=== PATIENT | female | born 1965 | race Caucasian/White ===

== ENCOUNTER 2017-11-12 18:40 | Observation (INO) ==
--- NOTE | 2017-11-12 19:17 | Emergency Department Note ---
Disposition Clinical Impression: Acute appendicitis Qualifiers: Acute appendicitis type: unspecified acute appendicitis type Qualified Code(s) : K35.80 - Unspecified acute appendicitis Disposition: Admitted As Inpatient Referrals: Ally Francois MD [Primary Care Provider] - General Adult HPI - General Chief complaint: ED Abdominal Pain Stated complaint: "meeting surgeon for appendectomy" Time Seen by Provider: 11/12/17 18:42 Source: patient Limitations: no limitations - History of Present Illness Pain Scale: 4 - Related Data Previous Rx's Medication Instructions Recorded Clindamycin [Cleocin] 300 mg PO Q8HR #6 capsule 02/17/15 Hydrocodone/Acetaminophen [[place] 1 - 2 tab PO Q6H PRN #30 tab 02/17/15 5-325 Tablet] Cyclobenzaprine HCl 5 mg PO DAILY 3 Days tablet 09/10/15 Naproxen [Naprosyn] 500 mg PO BID 3 Days tablet 09/10/15 Allergies Allergy/AdvReac Type Severity Reaction Status Date / Time acetaminophen [From Percocet] Allergy Anaphylaxis Verified 11/12/17 18:50 Cephalosporins Allergy Anaphylaxis Verified 11/12/17 18:50 Oxycodone Allergy Anaphylaxis Verified 11/12/17 18:50 chlorhexidine AdvReac Rash Verified 11/12/17 18:50 Past Medical History - Past Medical History Medical history: Reports: GERD Surgical history: Reports: cholecystectomy, hysterectomy Psychiatric history: Reports: anxiety - Social History Smoking Status: Never smoker Smokeless Tobacco Status: No Alcohol use: Reports: unknown Drug use: Reports: none Physical Exam - General Limitations: no limitations General appearance: alert, in no apparent distress Course Vital Signs Temperature 98.9 F 11/12/17 18:43 Pulse Rate 90 11/12/17 18:43 Respiratory Rate 16 11/12/17 18:43 Blood Pressure 151/91 11/12/17 18:43 O2 Sat by Pulse Oximetry 97 11/12/17 18:43 Temperature 98.9 F 11/12/17 18:43 Pulse Rate 90 11/12/17 18:43 Respiratory Rate 16 11/12/17 18:43 Blood Pressure 151/91 11/12/17 18:43 O2 Sat by Pulse Oximetry 97 11/12/17 18:43 Oxygen Delivery Oxygen Delivery Room Air Attestation Statement - Attestation Attestation: I examined this patient and my medical decision-making was reviewed with the Resident Physician. I agree with the documented findings, disposition and treatment plan as described except to the extent set forth below. 52 year old albert stallingsentes to the ED with complaints of an acute uncomplicated appendicitis. Darnell had an outpatient CT which confirms and she is here to see Dr. Hamilton. WE will start pre-op workup and Dr. Hamilton is at bedside for eval. We will admit.
[2017-11-12 19:18] LABS: Basophils # 0.1 K/mcL (0.0-0.2); Basophils % 0.5 %; Eosinophils # 0.1 K/mcL (0.0-0.6); Eosinophils % 0.9 %; Hematocrit 39.6 % (35.3-44.9); Hemoglobin 13.6 g/dL (11.5-15.4); Immature Granulocytes % 0.4 % (0-4); Lymphocytes % 23.2 %; Mean Corpuscular HGB Conc 34.3 g/dL (31.6-35.5); Mean Corpuscular Hemoglobin 32.5 pg (28.0-33.3); Mean Corpuscular Volume 94.7 fL (83.0-100.0); Mean Platelet Volume 10.1 fL (9.4-12.4); Monocytes # 0.9 K/mcL (0.0-1.3); Monocytes % 7.1 %; Neutrophils # 8.7 K/mcL (1.6-8.9); Platelet Count 276 K/mcL (140-400); Red Blood Count 4.18 M/mcL (3.82-4.97); Red Cell Distribution Width 12.5 % (11.5-14.5); Segmented Neutrophils % 67.9 %
[2017-11-12] MEDS ORDERED: Piperacillin/Tazobactam 3.375 GM in 0.9 % Sodium Chloride Mini Bag 100 ML IVPB ONE (19:19)
[2017-11-12 19:26] LABS: INR 1.1; Prothrombin Time 11.5 Seconds (9.4-12.1)
[2017-11-12 19:28] LABS: Activated Partial Thrombo Time 27.5 Seconds (26.0-36.0)
[2017-11-12 19:40] LABS: BUN/Creatinine Ratio 11 (6-26); Blood Urea Nitrogen 9 mg/dL (6-20); Calcium 9.3 mg/dL (8.6-10.3); Carbon Dioxide 28 mEq/L (23-29); Chloride 106 mEq/L (98-107); Glucose 110 mg/dL (70-105); Osmolality,Calculated 287 (280-300); Potassium 3.7 mEq/L (3.5-5.1); Sodium 139 mEq/L (136-145); eGFR For African Americans > 60 (> 60); eGFR For Non-African Americans > 60 (> 60)
[2017-11-12] MEDS ORDERED: Acetaminophen 325 MG TABLET PO PRN (19:41)
[2017-11-12] MEDS ORDERED: Ringers Solution, Lactated 1,000 ML IVC SCH (19:45)
--- NOTE | 2017-11-12 19:47 | Emergency Department Note ---
Disposition Clinical Impression: Acute appendicitis Qualifiers: Acute appendicitis type: unspecified acute appendicitis type Qualified Code(s) : K35.80 - Unspecified acute appendicitis Disposition: Admitted As Inpatient Condition: Good Referrals: Ally Francois MD [Primary Care Provider] - Forms: ED Satisfaction Letter, Work/School Release General Adult HPI - General Chief complaint: ED Abdominal Pain Stated complaint: "meeting surgeon for appendectomy" Time Seen by Provider: 11/12/17 18:42 Source: patient Limitations: no limitations Nursing Notes Reviewed: Yes Vital Signs Reviewed: Yes - History of Present Illness HPI Narrative: 52-year-old female who went to see her primary care physician due to abdominal pain. As an outpatient received a CT scan of the abdomen and pelvis which demonstrated acute appendicitis. Primary care physician called Dr. tamez who met the patient here in the emergency department. She has had nausea and decreased by mouth intake but she was eating approximately one hour prior to arrival when she received the call from her primary care physician. Past surgical history of cholecystectomy and hysterectomy. Onset approximately 24 hours ago Pain Scale: 4 Improves with: nothing Worsens with: nothing Associated symptoms: Reports: denies other symptoms Treatments Prior to Arrival: none - Related Data Allergies Allergy/AdvReac Type Severity Reaction Status Date / Time acetaminophen [From Percocet] Allergy Anaphylaxis Verified 11/12/17 18:50 Cephalosporins Allergy Anaphylaxis Verified 11/12/17 18:50 Oxycodone Allergy Anaphylaxis Verified 11/12/17 18:50 chlorhexidine AdvReac Rash Verified 11/12/17 18:50 All systems ED: reviewed and negative except as stated. Constitutional: Denies: fever ENT ED: Denies: throat pain Cardiovascular: Denies: chest pain Respiratory: Denies: cough Gastrointestinal: Reports: abdominal pain, nausea. Denies: vomiting Integumentary: Denies: rash Neurological: Denies: headache Past Medical History - Past Medical History Medical history: Reports: GERD Surgical history: Reports: cholecystectomy, hysterectomy Psychiatric history: Reports: anxiety - Social History Smoking Status: Never smoker Smokeless Tobacco Status: No Alcohol use: Reports: unknown Drug use: Reports: none Physical Exam - General Limitations: no limitations General appearance: alert, in no apparent distress - Head Head exam: atraumatic - Eye Eye exam: Present: normal appearance - ENT ENT exam: normal exam, normal oropharynx - Neck Neck exam: Present: normal inspection - Chest Chest inspection: Present: normal inspection - Respiratory Respiratory exam: Present: normal lung sounds bilaterally. Absent: respiratory distress - Cardiovascular Cardiovascular exam: Present: regular rate, normal rhythm - Abdominal Exam Abdominal exam: Present: soft, tenderness (Right lower quadrant), tenderness at McBurney's Point. Absent: guarding - Extremities Exam Extremities exam: Present: normal inspection - Neurological Exam Neurological exam: Present: alert, oriented X3 - Skin Skin exam: Present: warm, dry Course Course Narrative: Saw the patient with Dr. tamez in the emergency department. He will accept the patient with Zosyn antibiotic coverage and plan for laparoscopic cholecystectomy. Vital Signs Temperature 98.9 F 11/12/17 18:43 Pulse Rate 90 11/12/17 18:43 Respiratory Rate 16 11/12/17 18:43 Blood Pressure 151/91 11/12/17 18:43 O2 Sat by Pulse Oximetry 97 11/12/17 18:43 Temperature 98.9 F 11/12/17 18:43 Pulse Rate 90 11/12/17 18:43 Respiratory Rate 16 11/12/17 18:43 Blood Pressure 151/91 11/12/17 18:43 O2 Sat by Pulse Oximetry 97 11/12/17 18:43 Oxygen Delivery Oxygen Delivery Room Air Medical Decision Making - Medical Records Medical records reviewed: Yes I reviewed the patient's medical records. - Lab Data Lab results reviewed: Yes I reviewed the patient's lab results. Result diagrams: 11/12/17 19:03 11/12/17 19:03 Lab Results 11/12/17 11/12/17 11/12/17 Range/Units 19:03 19:03 19:03 WBC 12.8 H (4.3-11.1) K/mcL RBC 4.18 (3.82-4.97) M/mcL Hgb 13.6 (11.5-15.4) g/dL Hct 39.6 (35.3-44.9) % MCV 94.7 (83.0-100.0) fL MCH 32.5 (28.0-33.3) pg MCHC 34.3 (31.6-35.5) g/dL RDW 12.5 (11.5-14.5) % Plt Count 276 (140-400) K/mcL MPV 10.1 (9.4-12.4) fL Immature Gran % 0.4 (0-4) % Seg Neutrophils % 67.9 % Lymphocytes % 23.2 % Monocytes % 7.1 % Eosinophils % 0.9 % Basophils % 0.5 % Neutrophils # 8.7 (1.6-8.9) K/mcL Lymphocytes # 3.0 (0.6-4.6) K/mcL Monocytes # 0.9 (0.0-1.3) K/mcL Eosinophils # 0.1 (0.0-0.6) K/mcL Basophils # 0.1 (0.0-0.2) K/mcL PT 11.5 (9.4-12.1) Seconds INR 1.1 APTT 27.5 (26.0-36.0) Seconds Sodium 139 (136-145) mEq/L Potassium 3.7 (3.5-5.1) mEq/L Chloride 106 (98-107) mEq/L Carbon Dioxide 28 (23-29) mEq/L BUN 9 (6-20) mg/dL Creatinine 0.84 (0.60-1.20) mg/dL Est GFR ( Amer) > 60 (> 60) Est GFR (Non-Af Amer) > 60 (> 60) BUN/Creatinine Ratio 11 (6-26) Glucose 110 H (70-105) mg/dL Calculated Osmolality 287 (280-300) Calcium 9.3 (8.6-10.3) mg/dL - Radiology Data Radiology results reviewed: Yes I reviewed the patient's radiology results. - EKG Data EKG #1 EKG attestation: Yes I reviewed and interpreted this EKG. EKG shows normal: sinus rhythm Rate: normal Rhythm: NSR Interpretation: no acute changes
--- NOTE | 2017-11-12 19:57 | General Surg History&Physical ---
Date of Encounter: 11/12/17 Time of Encounter: 19:25 History of Present Illness Chief complaint: lower abdominal pain, acute appendicitis HPI: Ms. Angel is a 52 year old female referred to the ED By Eh Green and Edu Oneill after presenting to their office earlier today with new onset abdominal pain since approximately 1400 hrs. yesterday. The patient describes severe nausea but no vomiting. The pain began in the epigastrium has migrated to the lower abdomen and is radiating through to the back. He CT abdomen and pelvis completed as an outpatient demonstrated a dilated appendicitis approximately 9 mm in diameter with periappendiceal stranding consistent with acute appendicitis. The patient was instructed to present to the emergency department for further evaluation and treatment. Surgical referral was ultimately made. Past medical history: No significant history Surgical history: Tonsillectomy at age 39, hysterectomy, and cholecystectomy Allergies: Cephalosporins, Percocet, oxycodone, chlorhexidine skin prep Patient has taken penicillin/amoxicillin in the past without reaction The patient indicates that she can take hydrocodone/Vicodin for pain Medications: The patient takes no routine home meds Social history: Patient is G1, P1; she does not smoke; she admits to rare alcoholic beverage while on vacation; she does not admit to any illicit drug use Family history: Noncontributory Physical examination: Age-appropriate woman who appears to be in no acute distress, resting comfortably in her ED bed. She is 1.6 m tall, 64.86 kg; BMI 25.3. On presentation to the emergency department she is afebrile, 98.9; pulse 90, respirations 16 and unlabored; blood pressure 151/91. SPO2 on room air 97%. Skin: Warm, no obvious jaundice Lungs: Clear bilaterally; no obvious abdominal pain with deep inspiration Cardiac: Regular rate, no appreciable murmur Abdomen: Soft with tenderness most pronounced in the right lower quadrant. There is minimal tenderness to the right lower quadrant when the left lower quadrant is palpated. No discernible intra-abdominal masses. No obvious rebound. Bowel sounds present. Extremities: No obvious clubbing, cyanosis, or edema. CT abdomen/pelvis was reviewed. Findings include evidence of previous cholecystectomy; diverticulosis without diverticulitis; dilated appendix approximately 9 mm in diameter with periappendiceal stranding. Liver, spleen, pancreas, and adrenal glands appear unremarkable. Laboratories: White count 12.8, hemoglobin 13.6, hematocrit 39.6. Platelet count 276,000; differential within normal limits. Electrolytes, BUN, creatinine within normal limits. PT was 11.5, INR 1.1. Impression: 52-year-old female referred to the emergency department for further evaluation new-onset abdominal pain with nausea. Symptoms began vaguely in the epigastrium approximately 1400 hrs. yesterday and have progressed and migrated to the right lower quadrant radiating through to the back. Clinical findings and CT abdomen/pelvis are consistent with acute appendicitis. Surgery has been recommended. Risks of surgery include hemorrhage, infection, intra-abdominal abscess, injury to adjacent structures such as bowel, ureters, urinary bladder. If a normal appendix is encountered it will be removed to eliminate this diagnosis in the future. The patient is aware that an open appendectomy may become necessary. Alternative to appendectomy is non-operative observation with IV antibiotics and pain control. Risks of this treatment include progressive pain, nausea, vomiting with worsening appendicitis and possible perforation. If she responds to such non-surgical therapy, there is a risk of recurrent acute appendicitis in the future. The patient and her family in attendance have expressed understanding and are willing to proceed with surgery. This will be arranged today pending availability of an operating room/ team. The patient will be transferred to [facility] pending availability of the operating room. Past Med Surg Social Fam HX - Past Medical History Medical history: GERD Psychiatric history: anxiety - Past Surgical History Surgical History: cholecystectomy, hysterectomy - Social History Smoking Status: Never smoker Smokeless Tobacco Status: No Alcohol use: unknown Drug use: none Medications and Allergies 3 Allergy/AdvReac Type Severity Reaction Status Date / Time acetaminophen [From Percocet] Allergy Anaphylaxis Verified 11/12/17 18:50 Cephalosporins Allergy Anaphylaxis Verified 11/12/17 18:50 Oxycodone Allergy Anaphylaxis Verified 11/12/17 18:50 chlorhexidine AdvReac Rash Verified 11/12/17 18:50 Review of Systems All systems PM: The remainder of the systems were reviewed and are negative General Surgery Exam Initial Vital Signs Temp Pulse Resp BP Pulse Ox 98.9 F 90 16 151/91 97 11/12/17 18:43 11/12/17 18:43 11/12/17 18:43 11/12/17 18:43 11/12/17 18:43 Results - Labs 11/12/17 19:03 11/12/17 19:03 Abnormal lab results WBC 12.8 K/mcL (4.3-11.1) H 11/12/17 19:03 Glucose 110 mg/dL (70-105) H 11/12/17 19:03 Diabetes panel 11/12/17 Range/Units 19:03 Sodium 139 (136-145) mEq/L Potassium 3.7 (3.5-5.1) mEq/L Chloride 106 (98-107) mEq/L Carbon Dioxide 28 (23-29) mEq/L BUN 9 (6-20) mg/dL Creatinine 0.84 (0.60-1.20) mg/dL Glucose 110 H (70-105) mg/dL Calcium 9.3 (8.6-10.3) mg/dL Calcium panel 11/12/17 Range/Units 19:03 Calcium 9.3 (8.6-10.3) mg/dL Pituitary panel 11/12/17 Range/Units 19:03 Sodium 139 (136-145) mEq/L Potassium 3.7 (3.5-5.1) mEq/L Chloride 106 (98-107) mEq/L Carbon Dioxide 28 (23-29) mEq/L BUN 9 (6-20) mg/dL Creatinine 0.84 (0.60-1.20) mg/dL Glucose 110 H (70-105) mg/dL Calcium 9.3 (8.6-10.3) mg/dL Adrenal panel 11/12/17 Range/Units 19:03 Sodium 139 (136-145) mEq/L Potassium 3.7 (3.5-5.1) mEq/L Chloride 106 (98-107) mEq/L Carbon Dioxide 28 (23-29) mEq/L BUN 9 (6-20) mg/dL Creatinine 0.84 (0.60-1.20) mg/dL Glucose 110 H (70-105) mg/dL Calcium 9.3 (8.6-10.3) mg/dL All other labs normal.
[2017-11-12] MEDS ORDERED: Piperacillin/Tazobactam 3.375 GM in 0.9 % Sodium Chloride Mini Bag 100 ML IVPB SCH (20:00)
--- NOTE | 2017-11-12 22:32 | Anesthesia Evaluation PreOp ---
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[employer] SCIENCE History: Other (anxiety) Other Medical History: Other (IBS) Anesthesia History: No Prior Anesthetic Complications (slow to wake up only after her hysterectomy), Past Anesthesia (hysterectomy, cholecystectomy, right shoulder, tonsillectomy, colonoscopy) Alcohol Use: unknown Drug use: none Medications and Allergies BuPROPion XL (24 HR) [Wellbutrin XL] 150 mg PO DAILY 11/12/17 [History] Dextroamphetamine/Amphetamine [Adderall 10 mg Tablet] 10 mg PO BID 11/12/17 [ History] Losartan Potassium [Cozaar] 50 mg PO DAILY 11/12/17 [History] Pregabalin [Lyrica] 50 mg PO BID 11/12/17 [History] 3 Allergy/AdvReac Type Severity Reaction Status Date / Time acetaminophen [From Percocet] Allergy Anaphylaxis Verified 11/12/17 20:11 Cephalosporins Allergy Anaphylaxis Verified 11/12/17 20:11 Oxycodone Allergy Anaphylaxis Verified 11/12/17 20:11 chlorhexidine AdvReac Rash Verified 11/12/17 20:11 - Meds/Allergy Pre-op Review Medications Reviewed: Yes Allergies Reviewed: Yes Beta Blockers on Current Med List: No Anesthesia Results - Labs 11/12/17 19:03 11/12/17 19:03 Anesthesia Exam Last Vital Signs Temp 98.1 F 11/12/17 21:41 Pulse 64 11/12/17 21:41 Resp 17 11/12/17 21:41 BP 146/83 11/12/17 21:41 Pulse Ox 97 11/12/17 21:41 Weight: 65 kg - HEENT Pupil (Motor): Pupils equal, EOMI Mallampati: II - 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
[2017-11-12] MEDS ORDERED: *HR* Propofol 200 MG/20 ML VIAL IVP ONE (23:10)
[2017-11-12] MEDS ORDERED: *HR* Midazolam HCl 2 MG/2 ML VIAL ONE (23:26)
[2017-11-12] MEDS ORDERED: Lidocaine -MPF 2% 2 ML VIAL ONE (23:30)
[2017-11-12] MEDS ORDERED: Ondansetron 4 MG/2 ML VIAL ONE (23:31)
[2017-11-12] MEDS ORDERED: Dexamethasone 4 MG/ML VIAL ONE (23:31)
[2017-11-12] MEDS ORDERED: *HR* Rocuronium Bromide 50 MG/5 ML VIAL ONE (23:32)
[2017-11-12] MEDS ORDERED: Neostigmine Methylsulfate 3 MG/3 ML SYRINGE ONE (23:32)
[2017-11-13] MEDS ORDERED: *HR* FentaNYL (PF) 100 MCG/2 ML VIAL ONE ×2 (00:14→01:19)
[2017-11-13] MEDS ORDERED: Bupivacaine/EPI 1:200k 0.25%PF 30 ML VIAL ONE (00:16)
[2017-11-13] MEDS ORDERED: *HR* HYDROcodone/Acet 10/325 mg TABLET PO PRN (00:25)
[2017-11-13] MEDS ORDERED: Ketorolac 30 MG/ML VIAL ONE (00:54)
[2017-11-13] MEDS ORDERED: Ringers Solution, Lactated 500 ML IVC ONE (01:54)
--- NOTE | 2017-11-13 02:07 | Operative Note ---
Date of procedure: 11/13/17 Pre-op diagnosis: Acute appendicitis Post-op diagnosis: same Procedure: Laparoscopic appendectomy Complications: None apparent Anesthesia: GETA Local Anesthetics: 0.25% Sensorcaine HCL with Epinephrine 1:200,000 SubQ (cc) ( 30 mL) Surgeon: Edi Hamilton Was there an asset protection assistant present: No Estimated blood loss (cc): 5 IV fluids (cc): 600 Specimen: appendix Condition: stable Disposition: PACU Procedure in Detail: The patient was brought to the operating room where she was placed supine on the procedure table. The patient was appropriately identified as to person and procedure. The accuracy of this information was confirmed by the patient and the procedure team. The patient was then intubated and anesthetized under the supervision of Dr. Noah Zamora. The abdomen was prepped and draped in usual sterile fashion. When examined under anesthesia, there were no palpable intra- abdominal masses. Several milliliters of 0.25% bupivacaine with 1-200,000 units epinephrine was infiltrated into the infraumbilical skin. A small transverse incision was made with dissection extended to the fascia. Additional bupivacaine with epinephrine was infiltrated into the fascia. The fascia was grasped, elevated, and incised. An 11 mm Xcel port was established. The rigid laparoscope was placed within the obturator to visualize passage through the layers of the anterior abdominal wall. When the abdominal cavity was accessed, the obturator was replaced by the rigid laparoscope, the abdomen was insufflated with gaseous carbon dioxide. There was no obvious visible injury from establishing the port. Under direct visualization a 5 mm port was established in the suprapubic midline abdominal wall and a 12 mm port established in the left lower quadrant midclavicular line. All port sites were infiltrated with bupivacaine with epinephrine. Using endoscopic [place], the cecum was identified and elevated. The appendix was identified and elevated. The mesoappendix was divided at the junction between the appendix and the cecum. The appendix was transected at its junction with the cecum using an Ethicon ATS 45 mm stapler, using a blue cartridge. The remainder of the mesoappendix was transected with a second application of the Ethicon ATS 45 mm stapler using a vascular cartridge. When the appendix was from the surrounding structures, it was placed in an endoscopic pouch and extracted through the infraumbilical opening. The appendix was recovered and sent to pathology. The staple lines were inspected and found to be intact. Hemostasis appeared to be intact as well. The pneumoperitoneum was evacuated and the laparoscopic instrumentation removed. The fascia of the infraumbilical opening was closed with interrupted [id number] 0 Vicryl using S retractors. The port sites were closed with subcuticular 4-0 Vicryl. The incisions were sealed with Dermabond dermal adhesive. The patient was taken to PACU in stable condition. Needle, sponge, and instrument counts were correct at the close of the case. Total volume of 0.25% bupivacaine with 1-200,000 epinephrine used during this procedure, 30 mL.
--- NOTE | 2017-11-13 02:36 | Anesthesia Evaluation Post Op ---
Date of Encounter: 11/13/17 Time of Encounter: 02:35 - Vital Signs Vital Signs: Last Vital Signs Temp 97.6 F 11/13/17 02:06 Pulse 71 11/13/17 02:26 Resp 12 11/13/17 02:26 BP 147/80 11/13/17 02:26 Pulse Ox 97 11/13/17 02:26 - Lungs Lungs: Clear Ascult./Percussion - Airway Airway: Non-obstructed - Cardiovascular Regular Rate - Mental Status Mental Status: Alert & Oriented, Answers Appropriately - Pain Pain Scale: 2 - Nausea Vomiting Nausea Vomiting: Not Present - Hydration Hydration: NPO - Discharge PostOp Status: Transfer Patient to floor
[2017-11-13] MEDS ORDERED: Ondansetron 4 MG/2 ML VIAL IVP PRN (03:07)
[2017-11-13] MEDS ORDERED: Ringers Solution, Lactated 1,000 ML IVC SCH (03:07)
[2017-11-13] MEDS: *HR* HYDROcodone/Acet 10/325 mg TABLET PO PRN ×3 (03:27→18:36)
[2017-11-13] MEDS: BuPROPion XL (24 HR) 150 MG TABLET PO SCH (09:14)
[2017-11-13] MEDS: Acetaminophen 325 MG TABLET PO PRN (09:20)
[2017-11-13 11:22] LABS: Basophils % 0.1 %; Hematocrit 31.1 % (35.3-44.9); Hemoglobin 10.9 g/dL (11.5-15.4); Immature Granulocytes % 0.4 % (0-4); Immature Platelets 3.3 % (1.1-6.1); Mean Corpuscular Hemoglobin 33.4 pg (28.0-33.3); Mean Corpuscular Volume 95.4 fL (83.0-100.0); Monocytes # 0.9 K/mcL (0.0-1.3); Monocytes % 4.2 %; Neutrophils # 20.9 K/mcL (1.6-8.9); Platelet Count 248 K/mcL (140-400); Red Blood Count 3.26 M/mcL (3.82-4.97); Red Cell Distribution Width 12.2 % (11.5-14.5); Segmented Neutrophils % 93.3 %
[2017-11-13 11:24] LABS: Lymphocytes # 0.5 K/mcL (0.6-4.6)
--- NOTE | 2017-11-13 14:41 | General Surgery Progress Note ---
Date of Encounter: 11/13/17 Time of Encounter: 14:38 Subjective Narrative: General Surgery - post op Patient complaining of right shoulder pain and intermittent right sided pleuritic pain. No nausea/vomiting The patient is afebrile, most recently 97.6, pulse 62, respirations 15, blood pressure 114/74. SPO2 on room air 99% Lungs: Clear to auscultation, no obvious pain on deep inspiration despite her complaints Abdomen: Right-sided tenderness both upper and lower. Port sites intact, clean and dry. Active bowel sounds. Patient indicates she tolerated lunch without significant difficulty. Urine output: 1000 mL so far today. Postoperative labs: White count 22.4 which is likely reactive secondary to surgery; hemoglobin 10.9 with hematocrit 31.1 - likely delusional but will monitor Neutrophils increased to 20.9 - again, suspected reactive to recent surgery Operative pathology pending Impression: 52-year-old female proximally 13 hours status post laparoscopic appendectomy for clinical and radiologic findings of acute appendicitis. Postoperative status appears to be stable though patient complaining of right shoulder pain and intermittent right-sided pleuritic pain. These symptoms are most likely due to the insufflation of the abdomen with gaseous carbon dioxide during the laparoscopic surgery. They are expected to resolve without intervention. Plan: Continue to monitor Repeat CBC in a.m. Objective Vital Signs - Last 8 Hours Temp Pulse Resp BP Pulse Ox 11/13/17 14:06 97.6 F 62 15 114/74 99 11/13/17 10:28 97.8 F 72 15 123/81 98 Intake and Output 11/12/17 11/13/17 11/13/17 23:59 07:59 15:59 Intake Total 0 / 0 200 / 200 Output Total 105 / 105 900 / 900 Balance -105 / -105 -700 / -700 Intake: Oral 0 / 0 200 / 200 Output: Urine 100 / 100 900 / 900 Estimated Blood Loss 5 / 5 Other: Meal Lunch Percent of Meal Consumed 90% # Voids 0 1 - Labs 11/13/17 11:09 11/12/17 19:03 - VTE Documentation of Mechanical Device: Intermittent pneumatic compression device Consult Discharge Plan - Plan Referrals: Edi Hamilton MD [Non-Partnered Physician] -
--- NOTE | 2017-11-13 20:32 | Electrocardiograph Report ---
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
[2017-11-14 09:24] LABS: Basophils % 0.1 %; Eosinophils % 0.2 %; Hematocrit 27.5 % (35.3-44.9); Immature Granulocytes % 0.6 % (0-4); Lymphocytes # 1.7 K/mcL (0.6-4.6); Lymphocytes % 11.8 %; Mean Corpuscular HGB Conc 33.5 g/dL (31.6-35.5); Mean Corpuscular Hemoglobin 31.9 pg (28.0-33.3); Mean Corpuscular Volume 95.5 fL (83.0-100.0); Mean Platelet Volume 10.7 fL (9.4-12.4); Monocytes # 1.2 K/mcL (0.0-1.3); Monocytes % 8.7 %; Neutrophils # 11.2 K/mcL (1.6-8.9); Platelet Count 211 K/mcL (140-400); Red Blood Count 2.88 M/mcL (3.82-4.97); Red Cell Distribution Width 12.6 % (11.5-14.5); Segmented Neutrophils % 78.6 %
[2017-11-14 09:43] LABS: Hemoglobin 9.2 g/dL (11.5-15.4)
[2017-11-14] MEDS: BuPROPion XL (24 HR) 150 MG TABLET PO SCH (09:54)
[2017-11-14] MEDS: Acetaminophen 325 MG TABLET PO PRN (09:54)
[2017-11-14 10:44] VITALS: BP 117/70
--- NOTE | 2017-11-14 12:46 | General Surgery Progress Note ---
Date of Encounter: 11/14/17 Time of Encounter: 12:37 Subjective Patient reports: feels better, pain is less, tolerating a regular diet Narrative: General Surgery - POD #1 Patient feeling better; resolution of right shoulder and right upper quadrant abdominal pain. She is still complaining of mild to moderate suprapubic pain. Patient has reported to nurses some chilling; but no fever, nausea or vomiting. Leukocytosis has improved from 22.4 to 14.2. Patient has remained afebrile through the night, currently 98.1; pulse 72, no noted tachycardia since surgery; respirations 16, blood pressure 117/70. Through the night blood pressure was 94/56 to 99/59 but not accompanied by tachycardia. Lungs: Clear, patient able to take a deep breath without abdominal pain Cardiac: Regular rate, no appreciable murmur Abdomen: Soft, active bowel sounds with moderate tenderness in the vicinity of the suprapubic port. Port sites intact, clean and dry. No surrounding erythema, edema, or drainage. Patient is tolerating a regular diet. Pathology: Acute appendicitis with focal mucosal hyperplasia, no atypia Laboratories: As noted leukocytosis has improved from 22.4 to 14.2. Neutrophilia has also improved From 20.9 to 11.2. H&H has fallen to 9.2 and 27.5 which appears to be related to perioperative fluid/dilution but warrants continued monitoring Impression: Postoperative day 1, status post laparoscopic appendectomy for acute appendicitis with focal mucosal hyperplasia, no atypia Satisfactory status postop History of GERD, and anxiety Plan: Discharge home with follow-up in the office tomorrow; repeat CBC in a.m. prior to presenting to the office. Patient and her family aware and agreeable with this treatment plan. Discharge instructions Regular diet Activity as tolerated; lifting limited less than 20 pounds Patient may shower, wash incisions with soap and water Tylenol, ibuprofen, Motrin, Advil, Aleve etc. as needed for pain Prescription for hydrocodone/acetaminophen 5/325, #8, one every 6 hours as needed for pain not relieved by [id number] medication Follow-up in the office tomorrow, 11/15/17. Objective Vital Signs - Last 8 Hours Temp Pulse Resp BP Pulse Ox 11/14/17 11:54 98.1 F 11/14/17 10:40 97.6 F 72 16 117/70 99 11/14/17 06:38 98.1 F 76 18 99/59 97 Intake and Output 11/13/17 11/14/17 11/14/17 23:59 07:59 15:59 Intake Total 620 / 620 0 / 0 1190 / 1190 Balance 620 / 620 0 / 0 1190 / 1190 Intake: Oral 620 / 620 0 / 0 1190 / 1190 Other: Meal Dinner Percent of Meal Consumed 0% 50% # Voids 1 1 Weight 69.2 kg Patient Weight 11/14/17 23:59 Weight 69.2 kg - Labs 11/14/17 06:56 11/12/17 19:03 - VTE Documentation of Mechanical Device: Intermittent pneumatic compression device Consult Discharge Plan - Plan Referrals: Edi Hamilton MD [Non-Partnered Physician] - 11/15/17 2:40 pm
--- NOTE | 2017-11-14 12:50 | Discharge Summary ---
Outpatient Proc Discharge Plan - Plan Additional Instructions: Regular diet Activity as tolerated; lifting limited less than 20 pounds Patient may shower, wash incision with soap and water Repeat CBC in a.m. (prescription provided) Follow-up in the office, tomorrow afternoon, 11/15/17 Tylenol, ibuprofen, Motrin, Advil, Excedrin as needed for pain Prescription for hydrocodone with acetaminophen 5/325, #8, one every 6 hours as needed for pain not relieved by [id number] medications Prescriptions: HYDROcodone/Acet 5/325 mg [[facility] 5-325 mg] 1 tab PO Q6H PRN 2 Days #8 tab PRN Reason: Pain Home Medications: BuPROPion XL (24 HR) [Wellbutrin Xl] 150 mg PO DAILY 11/12/17 [History] Dextroamphetamine/Amphetamine [Adderall 10 mg Tablet] 10 mg PO BID 11/12/17 [ History] Losartan Potassium [Cozaar] 50 mg PO DAILY 11/12/17 [History] Pregabalin [Lyrica] 50 mg PO BID 11/12/17 [History] Acetaminophen [Tylenol] 650 mg PO Q6HR PRN tablet 11/14/17 [Rx] HYDROcodone/Acet 5/325 mg [[facility] 5-325 mg] 1 tab PO Q6H PRN 2 Days #8 tab [Rx]
== END 2017-11-14 14:16 | disposition home or self-care (01) ==
LOC: 3ANU 18:40 → EMEROO 18:40 → 3ANU 21:07
PROVIDERS: ADMIT Surgery; ATTEND Surgery